=== PATIENT | male | born 1960 | race Caucasian/White ===

== ENCOUNTER 2018-06-10 12:14 | Outpatient (CLI) ==
[2018-06-10 12:28] VITALS: BMI 27.7
== END 2018-06-10 12:15 | disposition home or self-care (01) ==
LOC: AMBL 12:14
PROVIDERS: ATTEND Emergency Medicine
DX: M25.561 Pain in right knee (principal); M17.0 Bilateral primary osteoarthritis of knee; Z86.718 Personal history of other venous thrombosis and embolism

== ENCOUNTER 2018-06-10 12:24 | Emergency (ER) ==
[2018-06-10 12:28] VITALS: BP 133/84; TEMP 97; BMI 27.7
--- NOTE | 2018-06-10 12:52 | ED.PDOC ---
General ED Provider: Dr. YESENIA MACKENZIE Chief Complaint: Knee Pain/Injury Stated Complaint: Rt Knee pain. States was walking and had to stop close to a park due to the severity of pain in is Right Knee. Hx of Gouty Arthritis. No recent injury Time Seen by Physician: 12:35 Mode of Arrival: Ambulance Information Source: Patient Exam Limitations: No limitations Nursing and Triage Documentation Reviewed and Agree: Yes Does patient meet sepsis criteria?: No System Inflammatory Response Syndrome: Not Applicable Sepsis Protocol: For patient's 13 years and over: Temp is 96.8 and below OR 101 and greater Pulse >90 BPM Resp >20/minute Acutely Altered Mental Status Are patient's symptoms suggestive of a new infection, such as: -Pneumonia -Skin, Soft Tissue -Endocarditis -UTI -Bone, Joint Infection -Implantable Device -Acute Abdominal Infection -Wound Infection -Meningitis -Blood Stream Catheter Infection -Unknown Musculoskeletal Complaint Exam - Knee Pain Complaint/Exam Mechanism of Injury: Reports: No known trauma Onset/Duration: Today Symptoms Are: Worse Onset of Pain: Reports: Immediate Initial Severity: Moderate Current Severity: Moderate Location: Reports: Discrete Character: Reports: Sharp, Aching, Throbbing, Burning Alleviating: Reports: Rest Aggravating: Reports: Movement, Weight bearing, Prolonged standing Associated Signs and Symptoms: Reports: Swelling, Fever (Warmth) Able to Bear Weight: Yes (But very painful) Septic Arthritis Risk Factors: Reports: Preexisting joint disease Gout Risk Factors: Reports: >40 years old, Male Knee Findings: Present: Swelling, Warmth, Effusion Tenderness: Present: Pre-patellar, Joint, Tibial Tuberosity Review of Systems - Review Of Systems Constitutional: Reports: No symptoms Eyes: Reports: No symptoms Ears, Nose, Mouth, Throat: Reports: No symptoms Respiratory: Reports: No symptoms Cardiac: Reports: No symptoms GI: Reports: No symptoms : Reports: No symptoms Musculoskeletal: Reports: Joint pain, Joint swelling, Muscle stiffness Skin: Reports: No symptoms Neurological: Reports: No symptoms Endocrine: Reports: No symptoms Hematologic/Lymphatic: Reports: No symptoms All Other Systems: Reviewed and Negative Past Medical History - Past Medical History Previously Healthy: Yes Endocrine: Reports: None Cardiovascular: Reports: None Respiratory: Reports: None Hematological: Reports: None Gastrointestinal: Reports: None Genitourinary: Reports: None Neuro/Psych: Reports: Migraine Musculoskeletal: Reports: None Cancer: Reports: None - Surgical History General Surgical History: Reports: Unknown - Family History Family History: Reports: Unknown - Social History Smoking Status: Current every day smoker Hx Substance Use: Yes (MARJUANA) Alcohol Screening: Occasionally Physical Exam - Physical Exam Appearance: Well-appearing, No pain distress, Well-nourished Eyes: SYDNIE, EOMI, Conjunctiva clear ENT: Ears normal, Nose normal, Oropharynx normal Respiratory: Airway patent, Breath sounds clear, Breath sounds equal, Respirations nonlabored Cardiovascular: RRR, Pulses normal, No rub, No murmur GI/: Soft, Nontender, No masses, Bowel sounds normal, No Organomegaly Musculoskeletal: Normal strength, ROM intact, No edema, No calf tenderness, Limited ROM (RT KNEE PAIN UNCOMFORTABLE ROOM) Skin: Warm, Dry, Normal color Neurological: Sensation intact, Motor intact, Reflexes intact, Cranial nerves intact, Alert, Oriented Psychiatric: Affect appropriate, Mood appropriate Critical Care Note - Critical Care Note Total Time (mins): 0 Course - Course Hematology/Chemistry: 06/10/18 13:10 06/10/18 13:10 Orders, Labs, Meds: Lab Review 06/10/18 06/10/18 06/10/18 13:10 13:10 13:10 WBC 13.60 H RBC 5.00 Hgb 14.0 Hct 43.9 MCV 87.8 MCH 28.0 MCHC 31.9 RDW Coeff of Mariela 16.2 H Plt Count 311 Neutrophils % (Manual) 84.0 H Band Neutrophils % 2.0 Lymphocytes % (Manual) 9.0 L Monocytes % (Manual) 3.0 Reactive Lymphocytes 2.0 Anisocytosis Not present ESR 38 H PT 10.4 INR 1.04 Sodium 141.0 Potassium 3.81 Chloride 102.2 Carbon Dioxide 28.9 Anion Gap 13.71 BUN 10.3 Creatinine 0.80 Estimated GFR (MDRD) 100.00 BUN/Creatinine Ratio 12.87 Glucose 116.0 H Uric Acid 9.32 H Calcium 9.65 Total Bilirubin 0.91 AST 26.8 ALT 16.4 Alkaline Phosphatase 71.9 Total Protein 8.47 H Albumin 4.79 Globulin 3.68 Albumin/Globulin Ratio 1.30 Orders Category Date Time Status CRUTCHES [ED CRUTCHES] .ONCE EMERGENCY 06/10/18 15:29 Active CBC W/ AUTO DIFF Stat LAB 06/10/18 13:10 Completed COMPREHENSIVE METABOLIC PANEL Stat LAB 06/10/18 13:10 Completed ESR Stat LAB 06/10/18 13:10 Completed MANUAL DIFFERENTIAL Stat LAB 06/10/18 13:10 Completed PT WITH INR Stat LAB 06/10/18 13:10 Completed URIC ACID Stat LAB 06/10/18 13:10 Completed Methylprednisolone Sod Succ/Pf [Solu-Medrol 125 mg] MEDS 06/10/18 15:24 Discontinued 125 mg IM ONCE STA KNEE, RIGHT 4 VIEWS Stat RADS 06/10/18 12:50 Completed Medications Discontinued Medications Generic Name Dose Route Start Last Admin Trade Name Rene PRN Reason Stop Dose Admin Methylprednisolone Sodium Succinate 125 mg 06/10/18 15:24 06/10/18 15:49 Solu-Medrol 125 Mg IM 06/10/18 15:25 125 mg ONCE STA Administration Vital Signs: Temp Pulse Resp BP Pulse Ox 06/10/18 12:25 97.0 F L 84 20 133/84 97 Departure - Departure Time of Disposition: 15:30 Disposition: HOME HEALTH SERVICE Discharge Problem: Acute pain of right knee, Gouty arthritis Instructions: Gout (ED), Swollen Knee Joint (ED) Condition: Fair Pt referred to PMD for follow-up: Yes (in 4-5 days ) IPMP verified?: No Additional Instructions: Take allopurinol 100 mg three times daily Make sure your taking your coumadin daily and begin and extra 1 mg daily Must be seen by a physician or medical provider in next 24-48 hr for recheck and have PT/INR rechecked Take Analgesics as directed Minimize weight bearing ambulation See PCP this week Prescriptions: Warfarin Sodium [Coumadin] 1 mg PO DAILY #30 tablet Allergies/Adverse Reactions: Allergies No Known Allergies Allergy (Verified 06/10/18 12:28) Home Medications: Ambulatory Orders Allopurinol 100 mg PO DAILY 06/10/18 Clindamycin HCl 300 mg PO Q8H 06/10/18 Folic Acid 1 mg PO DAILY 06/10/18 Indomethacin [Indocin] 25 mg PO TIDWM 06/10/18 Mirtazapine 30 mg PO BEDTIME 06/10/18 Prednisone 3 tab PO DAILYWM 06/10/18 Sertraline HCl 100 mg PO BEDTIME 06/10/18 Warfarin Sodium [Coumadin] 1 mg PO DAILY #30 tablet 06/10/18 Warfarin Sodium [Coumadin] 7.5 mg PO DAILY 06/10/18 Disposition Discussed With: Patient
--- NOTE | 2018-06-10 14:00 | DI ---
EXAM: Four views of the right knee. History: Right knee pain and swelling. Findings: No acute fracture or dislocation. Joint effusion is seen. Mild tricompartmental joint sp adam narrowing with tiny osteophytes. 1.4 cm linear radiopaque structure seen within the soft tissues of the medial knee at the level of the patella. There is edema within Hoffa's fat pad. Impression: 1. No acute osseous abnormality. 2. Joint effusion. 3. Mild arthritis. 4. Soft tissue linear radiopaque foreign body
[2018-06-10] MEDS ORDERED: SOLU-MEDROL 125 MG IM STA (15:24)
== END 2018-06-10 16:17 | disposition home health service (06) ==
LOC: ED 12:24
DX: M25.561 Pain in right knee (principal); M10.9 Gout, unspecified; F17.210 Nicotine dependence, cigarettes, uncomplicated; Z79.01 Long term (current) use of anticoagulants; Z79.899 Other long term (current) drug therapy
CPT/HCPCS: 36415; 80053; 84550; 85007; 85025; 85610; 85651; 96372; 99283

== ENCOUNTER 2018-06-17 15:44 | Outpatient (CLI) | END 2018-06-17 15:45 | disposition home or self-care (01) | LOC: RHC-LAB 15:44 | PROVIDERS: ATTEND Nurse Practitioner Family | DX: Z51.81 Encounter for therapeutic drug level monitoring (principal); Z79.01 Long term (current) use of anticoagulants; Z86.718 Personal history of other venous thrombosis and embolism; Z86.711 Personal history of pulmonary embolism | CPT/HCPCS: 36415; 85610 ==

== ENCOUNTER 2018-07-25 16:57 | Emergency (ER) ==
[2018-07-25 17:05] VITALS: BP 131/80; TEMP 99.1; BMI 25.6
--- NOTE | 2018-07-25 17:58 | ED.PDOC ---
General ED Provider: Dr. MATEUS YOUNG Chief Complaint: Abdominal Pain Stated Complaint: right side REPRODUCEABLE PAIN over the lower right s anteri/ lateral aspect of the R. lower ribs. Ddnied trauma . Mode of Arrival: Walk-In Information Source: Patient Primary Care Provider: MADHAVI CARRANZA Sepsis Protocol: For patient's 13 years and over: Temp is 96.8 and below OR 101 and greater Pulse >90 BPM Resp >20/minute Acutely Altered Mental Status Are patient's symptoms suggestive of a new infection, such as: -Pneumonia -Skin, Soft Tissue -Endocarditis -UTI -Bone, Joint Infection -Implantable Device -Acute Abdominal Infection -Wound Infection -Meningitis -Blood Stream Catheter Infection -Unknown Past Medical History - Past Medical History Previously Healthy: Yes Endocrine: Reports: None Cardiovascular: Reports: None Respiratory: Reports: None Hematological: Reports: None Gastrointestinal: Reports: None Genitourinary: Reports: None Neuro/Psych: Reports: Migraine Musculoskeletal: Reports: None Cancer: Reports: None - Surgical History General Surgical History: Reports: Unknown - Family History Family History: Reports: Unknown - Social History Smoking Status: Current every day smoker, Light tobacco smoker Hx Substance Use: Yes ([facility]) Alcohol Screening: Occasionally Course - Course Orders, Labs, Meds: Orders Category Date Time Status CT CHEST W/O CONTRAST Stat RADS 07/25/18 17:21 Taken Vital Signs: Temp Pulse Resp BP Pulse Ox 07/25/18 16:58 99.1 F 109 H 2 L 131/80 94 L Departure - Departure Allergies/Adverse Reactions: Allergies No Known Allergies Allergy (Verified 07/25/18 17:06) Home Medications: Ambulatory Orders Allopurinol 100 mg PO DAILY 06/10/18 Indomethacin [Indocin] 25 mg PO TIDWM 06/10/18 Mirtazapine 30 mg PO BEDTIME 06/10/18 Sertraline HCl 100 mg PO BEDTIME 06/10/18 Warfarin Sodium [Coumadin] 1 mg PO DAILY #30 tablet 06/10/18 Warfarin Sodium [Coumadin] 7.5 mg PO DAILY 06/10/18
--- NOTE | 2018-07-25 18:03 | ED.PDOC ---
General ED Provider: Dr. MATEUS YOUNG Chief Complaint: Abdominal Pain Stated Complaint: RIGHT LOWER CHEST WALL PAIN . DENIED TRAUMA . NO EXERTIONAL CHEST PAIN Time Seen by Physician: 17:00 (RN PRESENT AT ALL TIMES ) Mode of Arrival: Walk-In Information Source: Patient Exam Limitations: No limitations Primary Care Provider: MADHAVI CARRANZA Nursing and Triage Documentation Reviewed and Agree: Yes Does patient meet sepsis criteria?: No System Inflammatory Response Syndrome: Not Applicable Sepsis Protocol: For patient's 13 years and over: Temp is 96.8 and below OR 101 and greater Pulse >90 BPM Resp >20/minute Acutely Altered Mental Status Are patient's symptoms suggestive of a new infection, such as: -Pneumonia -Skin, Soft Tissue -Endocarditis -UTI -Bone, Joint Infection -Implantable Device -Acute Abdominal Infection -Wound Infection -Meningitis -Blood Stream Catheter Infection -Unknown Cardiovascular Complaint Exam - Chest Pain Complaint/Exam Onset: Sudden Duration: 1 day right ant/later chest wall Symptoms Are: Still present Timing: Constant Length of Chest Pain Episodes: 1 day Initial Severity: Moderate Current Severity: Moderate Location: Reports: Right anterior (and later lower chest wall) Pain Radiates: Reports: None Character: Reports: Aching Aggravating: Reports: Movement (and palpation of the right chest ) Alleviating: Reports: Rest Associated Signs and Symptoms: Denies: Diaphoresis, Nausea, Vomiting, Fever, Palpitations, Cough, Hemoptysis, Back pain, Abdominal pain, Dizziness, Short of air, Calf pain, Calf swelling Related Surgical History: Reports: None History of Healthcare-Acquired Pneumonia: Reports: No AMI/ACS Risk Factors: Reports: None TAD Risk Factors: Reports: None Pulmonary Embolism Risk Factors: Reports: None Prior Care for this Complaint: No Recent Stress Test: No Recent Echo/LV Function: No JVD Present: No Subcutaneous Emphysema Present: No Diminshed Breath Sounds: No Reproducible Chest Wall Pain: No Bilateral Pulses Present: No Unequal Pulses Noted: No Differential Diagnoses: Chest Wall Pain Review of Systems - Review Of Systems Constitutional: Reports: No symptoms Eyes: Reports: No symptoms Ears, Nose, Mouth, Throat: Reports: No symptoms Respiratory: Reports: No symptoms Cardiac: Reports: Chest pain (this pain is none cardiac ) GI: Reports: No symptoms (no gonzales's sign noted abdomen is soft and none tender ) : Reports: No symptoms Musculoskeletal: Reports: Other (chest wall pain with movement and palpation of the chest wall) Skin: Reports: No symptoms Neurological: Reports: No symptoms Endocrine: Reports: No symptoms Hematologic/Lymphatic: Reports: No symptoms All Other Systems: Reviewed and Negative Past Medical History - Past Medical History Previously Healthy: Yes Endocrine: Reports: None Cardiovascular: Reports: None Respiratory: Reports: None Hematological: Reports: None Gastrointestinal: Reports: None Genitourinary: Reports: None Neuro/Psych: Reports: Migraine Musculoskeletal: Reports: None Cancer: Reports: None - Surgical History General Surgical History: Reports: Unknown - Family History Family History: Reports: Unknown - Social History Smoking Status: Current every day smoker, Light tobacco smoker Hx Substance Use: Yes (MARJUANA) Alcohol Screening: Occasionally Physical Exam - Physical Exam Appearance: Well-appearing, No pain distress, Well-nourished Eyes: SYDNIE, EOMI, Conjunctiva clear ENT: Ears normal, Nose normal, Oropharynx normal Respiratory: Airway patent, Breath sounds clear, Breath sounds equal, Respirations nonlabored Cardiovascular: RRR, Pulses normal, No rub, No murmur GI/: Soft, Nontender, No masses, Bowel sounds normal, No Organomegaly Musculoskeletal: No edema (RIGHT SIDED LOWER CHEST WALL POINT TENDERNESS ) Skin: Warm, Dry, Normal color Neurological: Sensation intact, Motor intact, Reflexes intact, Cranial nerves intact, Alert, Oriented Psychiatric: Affect appropriate, Mood appropriate Critical Care Note - Critical Care Note Total Time (mins): 0 Course - Course Orders, Labs, Meds: Orders Category Date Time Status CT CHEST W/O CONTRAST Stat RADS 07/25/18 17:21 Taken Vital Signs: Temp Pulse Resp BP Pulse Ox 07/25/18 16:58 99.1 F 109 H 2 L 131/80 94 L BILL Risk Score BILL Risk Score: Risk Score Odds of by 30D 0 0.1 (0.1-0.2) 1 0.3 (0.2-0.3) 2 0.4 (0.3-0.5) 3 0.7 (0.6-0.9) 4 1.2 (1.0-1.5) 5 2.2 (1.9-2.6) 6 3.0 (2.5-3.6) 7 4.8 (3.8-6.1) Departure - Departure Time of Disposition: 19:00 Disposition: HOME SELF-CARE Discharge Problem: Rib fracture Qualifiers: Encounter type: initial encounter Rib fracture type: multiple ribs Fracture type: closed Laterality: right Qualified Code(s): S22.41XA - Multiple fractures of ribs, right side, initial encounter for closed fracture Instructions: Rib Fracture (ED) Condition: Good Pt referred to PMD for follow-up: Yes IPMP verified?: No Additional Instructions: Please call your Family Physician as soon as possible to schedule a follow-up appointment, YOU MUST FOLLOW UP WITH [facility]. IF THE PAIN IS WORSE, OR DIFFERENT OR NEW PAIN DEVELOPS YOU MUST RETURN IMMEDIATELY. Allergies/Adverse Reactions: Allergies No Known Allergies Allergy (Verified 07/25/18 17:06) Home Medications: Ambulatory Orders Allopurinol 100 mg PO DAILY 06/10/18 Indomethacin [Indocin] 25 mg PO TIDWM 06/10/18 Mirtazapine 30 mg PO BEDTIME 06/10/18 Sertraline HCl 100 mg PO BEDTIME 06/10/18 Warfarin Sodium [Coumadin] 1 mg PO DAILY #30 tablet 06/10/18 Warfarin Sodium [Coumadin] 7.5 mg PO DAILY 06/10/18 Hydrocodone/Acetaminophen [[place] 10-325 Tablet] 1 each PO Q8HR #14 tablet Disposition Discussed With: Patient
--- NOTE | 2018-07-25 18:05 | CT ---
Exam: CT of the chest without contrast History: Lower chest pain on the right Technique: [address] of the chest without intravascular contrast FINDINGS: The lung windows show no pulmonary parenchymal abnormality. Normal heart, great vessels a nd pericardium by noncontrast CT. Subtle nondisplaced right posterolateral tenth and eleventh rib fr actures. No acute chest wall soft tissue abnormality. No acute findings of the upper abdomen. Impression: 1. Nondisplaced right posterolateral 11th and 10th rib fractures. Negative exam otherwise.
== END 2018-07-25 18:48 | disposition home or self-care (01) ==
LOC: ED 16:57
DX: S22.41XA Multiple fractures of ribs, right side, initial encounter for closed fracture (principal)
CPT/HCPCS: 99282